=== PATIENT | female | born 1975 | race Caucasian/White ===

== ENCOUNTER 2019-08-22 06:29 | Day surgery (SDC) | payer MEDICAID ==
[~2019-08-22] VITALS: Ht 157.5 cm; Wt 48.0 kg
[~2019-08-22 06:29] MED LIST: SODIUM CHLORIDE 0.9% 1,000 ML IV ONE
[2019-08-22] MEDS ORDERED: ALBUTEROL SULFATE 2.5 MG/0.5 ML NEB SOLUTION NEB ONE (06:30)
[2019-08-22] MEDS ORDERED: SODIUM CHLORIDE 0.9% 1,000 ML IV ONE (06:30)
[2019-08-22] MEDS ORDERED: LIDOCAINE 2% 30 ML JELLY TP ONE (06:30)
[2019-08-22] MEDS ORDERED: BENZOCAINE 20% 50 MCG/SPRAY 57 GM TP ONE (06:30)
[2019-08-22] MEDS ORDERED: LIDOCAINE 4% 50 ML SOLUTION TP ONE (06:30)
[2019-08-22] MEDS ORDERED: MIDAZOLAM HCL 2 MG/2 ML VIAL ONE (07:25)
[2019-08-22] MEDS ORDERED: FentaNYL CITRATE-PF 100 MCG/2 ML VIAL ONE (07:25)
[2019-08-22] MEDS ORDERED: DOXY100C PO (08:08)
[2019-08-22] MEDS ORDERED: MethylPREDNISolone SOD SUCC 125 MG/2 ML VIAL IVP ONE (09:00)
[2019-08-22] MEDS ORDERED: MethylPREDNISolone SOD SUCC 125 MG/2 ML VIAL ONE (09:29)
[2019-08-22] MEDS ORDERED: OXYGEN THERAPY IH SCH (20:00)
== END 2019-08-22 10:40 | disposition home or self-care (01) ==
LOC: SURGERY 06:29
PROVIDERS: ATTEND Internal Medicine Critical Care Medicine
DX: R05 Cough (principal); J38.4 Edema of larynx; J98.8 Other specified respiratory disorders; Z87.01 Personal history of pneumonia (recurrent); Z85.72 Personal history of non-Hodgkin lymphomas; Z79.899 Other long term (current) drug therapy; Z92.21 Personal history of antineoplastic chemotherapy; Z98.890 Other specified postprocedural states
CPT/HCPCS: 31623; 31624; 71045; 84703; 87015; 87070; 87101; 87205; 87206; 87220; 88108; 88312; 93005; J2250; J2930; J3010; J7030; 87149; 87153